=== PATIENT | female | born 1980 | race Caucasian/White ===

== ENCOUNTER 2017-03-03 18:48 | Inpatient (IN) | payer BC ==
[~2017-03-03] VITALS: Ht 160 cm; Wt 92.2 kg
[2017-03-03] MEDS ORDERED: ONDANSETRON HCL/PF - ER 4 MG/2 ML VIAL IV ONE (19:00)
[2017-03-03] MEDS ORDERED: HYDROMORPHONE 1 MG/1 ML DISP.SYRIN IV ONE ×3 (19:00→20:30)
--- NOTE | 2017-03-03 19:00 | NUR ---
36 YO FEMALE BB RA; PT SLIPPED OFF CHAIR, TWISTED ANKLE. PT ASSISTED TO ER EBD, SKIN WARM AND DRY, RR EVEN AND UNLABORED. AWAITING ORDERS FORM PROVIDER
[2017-03-03] MEDS ORDERED: ONDANSETRON HCL/PF 4 MG/2 ML VIAL ONE (19:01)
[2017-03-03] MEDS ORDERED: HYDROMORPHONE 1 MG/1 ML DISP.SYRIN ONE ×3 (19:01→21:28)
--- NOTE | 2017-03-03 19:04 | NUR ---
MEDICATED PT ORDERED
--- NOTE | 2017-03-03 19:23 | NUR ---
VITAL SIGNS UPDATED.
[2017-03-03] MEDS ORDERED: PROPOFOL 20 ML IV ONE (19:45)
--- NOTE | 2017-03-03 19:54 | NUR ---
MD MADRIGAL AT BED SIDE TO EXPLAIN MODERATE SEDATION FOR CLOSED REDUCTION OF THE LEFT ANKLE
[2017-03-03] MEDS ORDERED: PROPOFOL 200 MG/20 ML VIAL IV ONE ×2 (20:00→21:30)
[2017-03-03] MEDS ORDERED: IV NS 0.9% 1,000 ML BAG IV ONE (20:00)
--- NOTE | 2017-03-03 20:05 | NUR ---
CONSENT FOR CONSCIOUS SEDATION FOR REDUCTION OF DISLOCATED ANKLE FRACTURE SIGNED BY MD MADRIGAL AND PATIENT
--- NOTE | 2017-03-03 20:06 | NUR ---
LAST PICKER AT BED SIDE FOR BLOOD DRAW
[2017-03-03 20:14] LABS: BASOPHILS # (AUTO) 0.2 /CMM (0.0-0.2); BASOPHILS % (AUTO) 2.2 % (0.0-2.0); EOSINOPHILS # (AUTO) 0.2 /CMM (0.0-0.7); EOSINOPHILS % (AUTO) 1.9 % (0.0-6.0); HEMATOCRIT 39 % (33-45); HEMOGLOBIN 13.1 g/dL (11.5-14.8); LYMPHOCYTES # (AUTO) 1.9 /CMM (0.8-4.8); MEAN CORPUSCULAR HEMOGLOBIN 30 PG (26.0-33.0); MEAN CORPUSCULAR HGB CONC 34 g/dl (31.0-36.0); MEAN CORPUSCULAR VOLUME 89 fL (82-100); MONOCYTES # (AUTO) 0.5 /CMM (0.1-1.30); MONOCYTES % (AUTO) 4.8 % (2.0-12.0); NEUTROPHILS # (AUTO) 7.9 /CMM (1.8-8.9); NEUTROPHILS % (AUTO) 73.1 % (43.0-81.0); PLATELET COUNT (AUTO) 220 /CMM (150-450); RED BLOOD CELL COUNT(AUTO) 4.35 MIL/uL (4.0-5.2); WHITE BLOOD COUNT (AUTO) 10.7 K/uL (4.3-11.0)
[2017-03-03 20:20] LABS: CALCIUM, SERUM 8.1 mg/dL (8.5-10.1); CREATININE 0.7 mg/dL (0.6-1.3)
[2017-03-03 20:23] LABS: INR 0.96 (0.87-1.13)
--- NOTE | 2017-03-03 20:46 | NUR ---
PATIENT ASSIGNED TO MS 320-2
--- NOTE | 2017-03-03 20:49 | NUR ---
MD MADRIGAL, LPN PER DIEM SUNNY, EMT SABA, RT BECCA AT BED SIDE FOR MODERATE SEDACTION FOR CLOSED REDUCTION
--- NOTE | 2017-03-03 21:36 | NUR ---
PATIENT IS RESTING IN ER BED, NAD NOTED, SKIN WARM AND DRY, PATIENT IS RESTING IN ER BED. VITAL SIGNS UPDATED.
[2017-03-03] MEDS ORDERED: FENTANYL PF 100MCG/2ML AMPUL ONE ×2 (21:40→21:51)
--- NOTE | 2017-03-03 21:53 | NUR ---
PAGED DR TODD
[2017-03-03] MEDS ORDERED: FENTANYL PF 100MCG/2ML AMPUL IV PRN ×2 (22:00→22:30)
--- NOTE | 2017-03-03 22:04 | NUR ---
PER MD MADRIGAL WE WILL TRY ANOTHER REDUCTION. MD MADRIGAL ADMIN 100MCG FENTENYL. PT IS ON JUNIOR QA ANALYST. WILL CONTINUE TO MONITOR
--- NOTE | 2017-03-03 22:45 | NUR ---
MS/RN NOTES RECEIVED PT. FROM ER VIA LOVE. PT. IS AWAKE, ALERT AND ORIENTED X4. BREATHING EVEN AND UNLABORED ON ROOM AIR. NO SOB, RESPIRATORY DISTRESS OR COMPLAINTS OF PAIN NOTED AT THIS TIME. ORIENTED PT. TO ROOM. PT. WITH LEFT HAND 22 GAUGE IV SALINE LOCK PRESENT, PATENT AND INTACT. PT. WITH LEFT LEG SPLINT PRESENT AND INTACT. AWAITING ADMITTING ORDERS. BED LOCKED AND IN LOWEST POSITION, SIDE RAILS UP X2, CALL LIGHT WITHIN REACH, WILL CONTINUE TO MONITOR.
[2017-03-03 23:00] VITALS: BP 105/53
[2017-03-04] VITALS (7 sets, daily range): BP systolic 110–126; BP diastolic 63–81
[2017-03-04] MEDS ORDERED: ACETAMINOPHEN 325 MG TABLET PO PRN (01:00)
[2017-03-04] MEDS ORDERED: ZOLPIDEM TARTRATE 5 MG TABLET PO PRN (01:00)
[2017-03-04] MEDS ORDERED: MAG HYDROX/AL HYDROX/SIMETH 30 ML UDC PO PRN (01:00)
[2017-03-04] MEDS ORDERED: Z GUARD REMEDY 2 OZ OINT TP PRN (01:00)
[2017-03-04] MEDS ORDERED: MAGNESIUM HYDROXIDE 30 ML UDC PO PRN (01:00)
[2017-03-04] MEDS ORDERED: IV NS 0.9% 1,000 ML BAG IV ONE (01:30)
[2017-03-04] MEDS ORDERED: MORPHINE SULFATE INJ 4 MG/ML DISP.SYRIN ONE (03:01)
[2017-03-04] MEDS: MORPHINE SULFATE INJ 2 MG/ML DISP.SYRIN IV PRN ×2 (03:02→22:26)
--- NOTE | 2017-03-04 03:02 | NUR ---
MS/RN NOTES MORPHINE 2MG IVP NOT AVAILABLE. MORPHINE 4MG IVP OVERIDEN AND 2MG WASTED. MEDICATION ADMINISTERED TO PT. ORDERED. WILL CONTINUE TO MONITOR.
[2017-03-04] MEDS ORDERED: ONDANSETRON HCL/PF 4 MG/2 ML VIAL ONE (03:10)
[2017-03-04] MEDS: ONDANSETRON HCL/PF 4 MG/2 ML VIAL IVP PRN ×2 (03:13→19:52)
--- NOTE | 2017-03-04 06:50 | NUR ---
MS/RN NOTES PT. IS LYING IN BED RESTING. BREATHING EVEN AND UNLABORED ON ROOM AIR. NO SOB, RESPIRATORY DISTRESS OR COMPLAINTS OF PAIN NOTED AT THIS TIME. PT. WITH RIGHT FOREARM 20 GAUGE PERIPHERAL IV PRESENT, PATENT AND INTACT ADMINISTERING TO PT. NS @ 100 ML/HR. PT. WITH LEFT LEG SPLINT PRESENT AND INTACT. ALL PT. NEEDS MET. BED LOCKED AND IN LOWEST POSITION, SIDE RAILS UP X2, CALL LIGHT WITHIN REACH, WILL ENDORSE TO DAYSHIFT NURSE FOR CONTINUITY OF CARE.
--- NOTE | 2017-03-04 07:40 | NUR ---
MS RN OPENING NOTES PT IS RESTING IN BED. PT COMPLAINS OF MODERATE PAIN. WILL ADDRESS PT NEEDS, AND CONTINUE TO FOLLOW UP. CALL LIGHT WITHIN REACH.
[2017-03-04] MEDS: HYDROCODONE/APAP 5/325MG 1 EACH TABLET PO PRN ×2 (08:24→19:49)
[2017-03-04] MEDS ORDERED: CETI-102 PO (08:46)
[2017-03-04] MEDS ORDERED: BACITRACIN 50000 UNITS/VIAL ONE (12:18)
--- NOTE | 2017-03-04 12:24 | NUR ---
RN MS NOTES PT TAKEN TO OR FOR OPEN REDUCTION INTERNAL FIXATION LEFT ANKLE FRACTURE, AT 1220. PT INFORMED CONSENT SIGNED. PT VITAL SIGNS STABLE. FAMILY MADE AWARE. PT NPO SINCE LAST EVENING.
[2017-03-04] MEDS ORDERED: FENTANYL PF 100MCG/2ML AMPUL ONE (12:39)
[2017-03-04] MEDS ORDERED: MORPHINE SULFATE INJ 10 MG/ML DISP.SYRIN ONE ×2 (14:58→22:18)
[2017-03-04] MEDS ORDERED: BUPIVACAINE 0.5 % PF 150 MG/30 ML VIAL ONE (15:21)
--- NOTE | 2017-03-04 15:25 | NUR ---
RN MS NOTES PT BACK FROM SURGERY, AWAKE ALERT AND ORIENTED, NOT IN DISTRESS. VITAL SIGNS ARE STABLE, AND MONITORED CLOSELY. POST OPP ORDERS RECEIVED NOTED AND CARRIED OUT. PT LEFT LOWER LEG CAST ELEVATED ORDERED. OFFERED PAIN MEDICATION. PT STATED WAS NOT IN PAIN AT THIS TIME. WILL CONTINUE TO MONITOR. ADVANCED DIET ORDERED TOLERATED WELL. CALL LIGHT WITHIN REACH.
--- NOTE | 2017-03-04 18:35 | NUR ---
RN MS CLOSING NOTES PT IS RESTING IN BED. DENIES ANY PAIN OR DISCOMFORT AT THIS TIME. SINCE RETURNING FROM SURGERY PT VITAL SIGNS HAVE BEEN STABLE. PT ABLE TO USE BEDPAN. MADE SURE PT WAS CALM AND COMFORTABLE. CALL LIGHT WITHIN REACH. WILL ENDORSE TO THE NIGHT NURSE.
--- NOTE | 2017-03-04 20:00 | NUR ---
MS/RN OPENING NOTES PATIENT IN BED, AWAKE, ALERT X4. ABLE TO VERBALIZE NEEDS. WATCHING TV AND REPORTED PAIN ON MS/RN OPENING NOTES PATIENT ALERT, ORIENTED X4, ABLE TO VERBALIZE NEEDS AND REPORTED PAIN OF 7/10 IN LEFT ANKLE. PROVIDED ICE COMPRESS AND SNACKS. IV ON RFA W/ NO S/S OF INFILTRATION, CALL LIGHTS WITHIN REACH. ASSISTED WITH BED NOLASCO. WILL CHECK PAIN EFFECTIVENESS.
[2017-03-04] MEDS: CEFAZOLIN 2 GM in IV D5W 50 ML IV SCH (20:40)
--- NOTE | 2017-03-04 21:00 | NUR ---
MS/RN NOTES PATIENT REPORTED PAIN AND VERBALIZE THE NEED OF MORPHINE AT BED TIME , WILL CONTINUE TO PROVIDE CARE.
--- NOTE | 2017-03-05 02:58 | NUR ---
MS/RN NOTES PATIENT REPORTED PAIN ON LEFT LEG /10 AND ELEVATE LEFT LEG FOR COMFORT, WARM BLANKET PROVIDED AND WILL GIVE PRN MEDTO MONITOR EFFECTIVENESS,
[2017-03-05] MEDS ORDERED: MORPHINE SULFATE INJ 10 MG/ML DISP.SYRIN ONE (03:09)
[2017-03-05] MEDS: MORPHINE SULFATE INJ 10 MG/ML DISP.SYRIN IV PRN ×2 (03:25→08:30)
[2017-03-05] MEDS: ONDANSETRON HCL/PF 4 MG/2 ML VIAL IVP PRN ×2 (03:34→13:34)
--- NOTE | 2017-03-05 04:37 | NUR ---
PATIENT REPORTED PAIN LEVEL OF 5/10 ON LEFT LEG AND PRN NORCO 5-325MG TO GIVE TO RELIEVE PAIN. WILL MONITOR
[2017-03-05] MEDS: HYDROCODONE/APAP 5/325MG 1 EACH TABLET PO PRN (04:39)
[2017-03-05] MEDS: CEFAZOLIN 2 GM in IV D5W 50 ML IV SCH ×2 (04:59→17:10)
--- NOTE | 2017-03-05 06:31 | NUR ---
320-2 MS/RN NOTES PATIENT PROVIDED PAIN MEDICATION FOR LEFT LEG PAIN, FREQUENT MONITORING AND WITH ASNEEDED ZOFRAN FOR NAUSEA. WILL CONTINUE TO MONITOR AND ENDORSE TO AM RN.
--- NOTE | 2017-03-05 07:10 | NUR ---
RN INITIAL NOTES: PATIENT RESTING IN BED. NONLABORED BREATHING ON ROOM AIR NOTED. NO SIGNS OF DISTRESS NOTED. IV SITE PATENT AND INTACT. BED IN LOWEST LOCKED POSITION. CALL LIGHT WITHIN REACH. WILL CONTINUE TO MONITOR
[2017-03-05 08:00] VITALS: BP 125/69
[2017-03-05 08:31] LABS: BASOPHILS % (AUTO) 0.3 % (0.0-2.0); EOSINOPHILS # (AUTO) 0.1 /CMM (0.0-0.7); EOSINOPHILS % (AUTO) 1.1 % (0.0-6.0); HEMATOCRIT 35 % (33-45); HEMOGLOBIN 11.9 g/dL (11.5-14.8); LYMPHOCYTES # (AUTO) 2.5 /CMM (0.8-4.8); LYMPHOCYTES % (AUTO) 19.7 % (20.0-44.0); MEAN CORPUSCULAR HEMOGLOBIN 30 PG (26.0-33.0); MEAN CORPUSCULAR HGB CONC 34 g/dl (31.0-36.0); MEAN CORPUSCULAR VOLUME 89 fL (82-100); MONOCYTES % (AUTO) 7.9 % (2.0-12.0); NEUTROPHILS # (AUTO) 9.1 /CMM (1.8-8.9); PLATELET COUNT (AUTO) 202 /CMM (150-450); RDW COEFFICIENT OF VARIATION 12.8 (11.5-15.0); RED BLOOD CELL COUNT(AUTO) 3.92 MIL/uL (4.0-5.2); WHITE BLOOD COUNT (AUTO) 12.8 K/uL (4.3-11.0)
[2017-03-05 08:50] LABS: CALCIUM, SERUM 8.4 mg/dL (8.5-10.1); CREATININE 0.6 mg/dL (0.6-1.3); MAGNESIUM 1.9 mg/dL (1.8-2.4); PHOSPHORUS 3.5 mg/dL (2.5-4.9)
[2017-03-05] MEDS ORDERED: ENOXAPARIN SODIUM 40 MG/0.4 ML DISP.SYRIN SQ SCH (09:00)
[2017-03-05] MEDS: oxyCODONE/APAP (5/325 MG) 1 UDTAB TABLET PO PRN ×2 (11:47→16:11)
[2017-03-05] MEDS ORDERED: HYDR-3326 PO (13:35)
[2017-03-05 16:00] VITALS: BP 108/52
--- NOTE | 2017-03-05 19:00 | NUR ---
RN NOTES: PATIENT DISCHARGED HOME PER DOCTORS ORDERS. PATIENT STABLE. NONLABORED BREATHING ON ROOM AIR. PATIENT ALERT ORIENTED X4. PATIENT GIVEN MEDICATION PRESCRIPTIONS. PATIENT CLEARED BY AUGUSTINE TURK TO GO HOME. PATIENT VERBALIZES UNDERSTANDING OF MEDICATIONS. PATIENT INFORMED TO FOLLOW UP WITH DR KENDALL IN 1-2 WEEKS. IV TAKEN OUT. VALUABLES GIVEN TO PATIENT. CRUTCHES ORDERED AND GIVEN TO PATIENT. PATIENT LEFT VIA PRIVATE CAR WITH MOTHER. WAS ACCOMPANIED BY DAIRY BACTERIOLOGIST TO CAR
== END 2017-03-05 18:54 | disposition home or self-care (01) | DRG 493 ==
LOC: ER 18:50 → MED 21:15
PROVIDERS: ADMIT Family Medicine; ATTEND Internal Medicine
PROC: 0QSH04Z Reposition Left Tibia with Internal Fixation Device, Open Approach (ICD-10-PCS; principal; 2017-03-04 13:11)
DX: S82.52XA Displaced fracture of medial malleolus of left tibia, initial encounter for closed fracture (principal); D68.59 Other primary thrombophilia; E66.9 Obesity, unspecified; W01.0XXA Fall on same level from slipping, tripping and stumbling without subsequent striking against object, initial encounter; Y92.9 Unspecified place or not applicable
CPT/HCPCS: 36415; 71010-TC; 73600-TC; 73610-TC; 80048-TC; 80061-TC; 83735-TC; 84100-TC; 84703-TC; 85025-TC; 85730-TC; 87081-TC; 97110-TC; 97116-TC; 97530-TC; A4606; A6402; J0690; J1100; J1170; J1650; J1885; J2270; J2405; J2704; J3010; J3490; J7030; J7060